=== PATIENT | female | born 1990 | race Caucasian/White ===

== ENCOUNTER 2016-08-22 00:15 | Emergency (ER) | payer SELFPAY ==
[~2016-08-22] VITALS: Ht 162.6 cm; Wt 91.6 kg
[2016-08-22 01:57] LABS: HEMATOCRIT 40.2 % (36.0-46.0); MCH 28.4 PG (29.0-34.0); MCHC 33.1 G/DL (30.0-36.0); MCV 85.7 FL (83-99); MEAN PLAT.VOLUME 11.3 uM^3 (9.5-12.4); PLATELET COUNT 244 K/uL (156-360); RBC DIS.WIDTH-CV 12.6 % (11.8-14.6); RBC DIS.WIDTH-SD 39.2 % (39-53); RED BLOOD COUNT 4.69 M/uL (3.80-5.20); WHITE BLOOD COUNT 10.8 K/uL (4.1-10.2)
[2016-08-22 02:02] LABS: ADD MIUA? NO; BILIRUBIN NEGATIVE; BLOOD NEGATIVE; COLOR STRAW ((YELLOW)); GLUCOSE (STRIP) NEGATIVE; KETONES NEGATIVE; LEUKOCYTES NEGATIVE; NITRITE NEGATIVE; PROTEIN (STRIP) NEGATIVE; SPECIFIC GRAVITY 1.005 (1.000-1.030); UCUL ADDED? NO; UROBILINOGEN 0.2 MG/DL (0.2-1.0)
[2016-08-22 02:09] LABS: CHLORIDE 101 mEq/L (99-109); POTASSIUM 3.5 mEq/L (3.7-5.4); SODIUM 139 mEq/L (136-147)
[2016-08-22 02:11] LABS: GLUCOSE 84 mg/dL (70-99)
[2016-08-22 02:12] LABS: ANION GAP 10 MEQ/L (2-14)
[2016-08-22 02:13] LABS: TOTAL BILIRUBIN 0.3 mg/dL (0.0-1.0)
[2016-08-22 02:14] LABS: ALKALINE PHOSPHATASE 123 IU/L (3-129)
[2016-08-22 02:15] LABS: GFR ESTIMATE (CALCULATED) > 59 mL/min/
[2016-08-22 02:16] LABS: UREA NITROGEN (BUN) 9 mg/dL (9-23)
[2016-08-22 02:18] LABS: CREATINE KINASE 16 IU/L (1-294); LIPASE 20 U/L (1.0-51.0); TOTAL CK 16 IU/L (1-294)
[2016-08-22 02:24] LABS: QUANTITATIVE HCG < 4.0 MIU/ML
[2016-08-22 02:25] LABS: CK-MB < 0.4 ng/mL (0.0-4.9)
[2016-08-22] MEDS ORDERED: STADOL NASAL2.5 ML NS (04:14)
[2016-08-22 04:22] VITALS: BP 115/64
== END 2016-08-22 04:25 | disposition home or self-care (01) ==
LOC: EME 00:15
PROVIDERS: Emergency Medicine
DX: R51 Headache (principal); G35 Multiple sclerosis; R56.9 Unspecified convulsions; F17.200 Nicotine dependence, unspecified, uncomplicated
CPT/HCPCS: 70450; 80053; 80164; 81003; 82550; 82553; 83690; 84702; 85027; 99281; 99284; J0595; J1100; J1200; J1630; J1885; J2405; J3475; J7030

== ENCOUNTER 2016-08-25 19:15 | Observation (INO) | payer SELFPAY ==
[~2016-08-25] VITALS: Ht 162.6 cm; Wt 90.8 kg
[~2016-08-25 19:15] MED LIST: STADOL NASAL2.5 ML NS
[2016-08-25 21:04] LABS: CHLORIDE 105 mEq/L (99-109); POTASSIUM 3.7 mEq/L (3.7-5.4); SODIUM 141 mEq/L (136-147)
[2016-08-25 21:06] LABS: GLUCOSE 84 mg/dL (70-99)
[2016-08-25 21:07] LABS: ANION GAP 9 MEQ/L (2-14)
[2016-08-25 21:10] LABS: GFR ESTIMATE (CALCULATED) > 59 mL/min/
[2016-08-25 21:11] LABS: UREA NITROGEN (BUN) 10 mg/dL (9-23)
[2016-08-25] MEDS ORDERED: ADDERALL10 MG PO (22:38)
[2016-08-25] MEDS ORDERED: BETASERON0.3 MG SC (22:38)
[2016-08-25] MEDS ORDERED: KEPPRA500 MG PO (22:39)
[2016-08-25] MEDS ORDERED: REGLAN10 MG PO (22:39)
[2016-08-25] MEDS ORDERED: DEPAKOTE500 MG PO (22:39)
[2016-08-25] MEDS ORDERED: TORADOL10 MG PO (22:39)
[2016-08-25] MEDS ORDERED: FOLIC ACID0.8 MG PO (22:39)
[2016-08-25] MEDS ORDERED: VIMPAT200 MG PO (22:39)
[2016-08-25] MEDS ORDERED: KEPPRA1000 MG PO (22:40)
[2016-08-25] MEDS ORDERED: BENADRYL ALLERG25 MG PO (22:40)
[2016-08-26] VITALS (7 sets, daily range): BP systolic 98–144; BP diastolic 57–91
[2016-08-26 01:35] LABS: HDL CHOLESTEROL 35 MG/DL (Desirable>=50); LDL CHOLESTEROL 67 mg/dL (Desirable<100); NON-HDL CHOLESTEROL 91 mg/dL (Desirable<160); TOTAL CHOLESTEROL 126 mg/dL (Desirable<200); TRIGLYCERIDES 120 MG/DL (Normal: <150)
[2016-08-26 02:45] LABS: EOSINOPHIL (%) 0 % (0-5); HEMATOCRIT 41.6 % (36.0-46.0); IMMATURE GRANULOCYTE (%) 0.9 % (0.0-0.7); IMMATURE GRANULOCYTE COUNT 0.1 K/uL; INSTRUMENT ABS NEUTROPHIL CT 11.1 K/uL; LYMPHOCYTE COUNT 1.1 K/uL (1.0-2.8); MCH 28.5 PG (29.0-34.0); MCHC 32.7 G/DL (30.0-36.0); MEAN PLAT.VOLUME 11.5 uM^3 (9.5-12.4); MONOCYTE (%) 0.5 % (3-12); MONOCYTE COUNT 0.1 K/uL (0-0.8); NEUTROPHIL (%) 89.8 % (45-76); NEUTROPHIL COUNT 11.1 K/uL (1.8-6.4); PLATELET COUNT 310 K/uL (156-360); RBC DIS.WIDTH-CV 12.9 % (11.8-14.6); RBC DIS.WIDTH-SD 40.8 % (39-53); RED BLOOD COUNT 4.78 M/uL (3.80-5.20); WHITE BLOOD COUNT 12.3 K/uL (4.1-10.2)
[2016-08-26 06:31] LABS: HEMATOCRIT 41.1 % (36.0-46.0); MCH 28.5 PG (29.0-34.0); MCHC 32.4 G/DL (30.0-36.0); MCV 88.2 FL (83-99); MEAN PLAT.VOLUME 11.6 uM^3 (9.5-12.4); PLATELET COUNT 288 K/uL (156-360); RBC DIS.WIDTH-CV 12.7 % (11.8-14.6); RBC DIS.WIDTH-SD 40.8 % (39-53); RED BLOOD COUNT 4.66 M/uL (3.80-5.20); WHITE BLOOD COUNT 8.4 K/uL (4.1-10.2)
[2016-08-26 06:38] LABS: ALKALINE PHOSPHATASE 121 IU/L (3-129); ANION GAP 12 MEQ/L (2-14); CHLORIDE 107 MEQ/L (99-109); GFR ESTIMATE (CALCULATED) > 59 mL/min/; SAMPLE HEMOLYSIS CHECK 0; SAMPLE ICTERIC CHECK 0; SAMPLE LIPEMIA CHECK 0; SODIUM 138 MEQ/L (136-147); TOTAL BILIRUBIN 0.3 MG/DL (0.0-1.0); UREA NITROGEN (BUN) 12 mg/dL (9-23)
[2016-08-26 06:41] LABS: GLUCOSE 229 mg/dL (70-99); POTASSIUM 4.9 MEQ/L (3.7-5.4)
[2016-08-27 07:07] LABS: Estimated Average Glucose 108 mg/dL (70-123); HEMOGLOBIN A1c (GLYCOHEMOGLOB) 5.4 % HGB (Below 5.7)
[2016-08-27 11:04] VITALS: BP 138/75
[2016-08-27] MEDS ORDERED: TIZANIDINE HCL2 MG PO (12:58)
[2016-08-27] MEDS ORDERED: PERCOCET 5/31 TABLET PO (12:58)
== END 2016-08-27 15:18 | disposition home or self-care (01) ==
LOC: EME 19:15 → 5SOUTH 08-26 00:04 → EDOF 08-26 00:04 → 5SOUTH 08-26 00:04
PROVIDERS: Emergency Medicine; Internal Medicine
DX: G35 Multiple sclerosis (principal); F17.200 Nicotine dependence, unspecified, uncomplicated; Z88.2 Allergy status to sulfonamides; R53.1 Weakness; R11.2 Nausea with vomiting, unspecified; R51 Headache
CPT/HCPCS: 70450; 70551; 80048; 80053; 80061; 83036; 85025; 85027; 92523 GN; 93880; 95819; 99281; 99285; G0378; J1100; J1200; J1644; J1885; J2270; J2405; J2930; J3010; J3475; J7030; J7050; Q0177

== ENCOUNTER 2016-09-05 19:38 | Emergency (ER) | payer SELFPAY ==
[~2016-09-05] VITALS: Ht 162.6 cm; Wt 90.3 kg
[~2016-09-05 19:38] MED LIST changes: +ADDERALL10 MG PO; +BENADRYL ALLERG25 MG PO; +BETASERON0.3 MG SC; +DEPAKOTE500 MG PO; +FOLIC ACID0.8 MG PO; +KEPPRA1000 MG PO; +KEPPRA500 MG PO; +PERCOCET 5/31 TABLET PO; +REGLAN10 MG PO; +TIZANIDINE HCL2 MG PO; +TORADOL10 MG PO; +VIMPAT200 MG PO
[2016-09-05 20:44] LABS: ADD MIUA? YES; BILIRUBIN NEGATIVE; BLOOD NEGATIVE; COLOR YELLOW ((YELLOW)); GLUCOSE (STRIP) NEGATIVE; KETONES 5; LEUKOCYTES LARGE; NITRITE NEGATIVE; PROTEIN (STRIP) 30; SPECIFIC GRAVITY 1.016 (1.000-1.030); UROBILINOGEN 0.2 MG/DL (0.2-1.0)
[2016-09-05 21:07] LABS: CHLORIDE 107 mEq/L (99-109); HEMATOCRIT 43.4 % (36.0-46.0); MCH 28.9 PG (29.0-34.0); MCHC 33.9 G/DL (30.0-36.0); MCV 85.3 FL (83-99); MEAN PLAT.VOLUME 11.2 uM^3 (9.5-12.4); PLATELET COUNT 281 K/uL (156-360); POTASSIUM 4.3 mEq/L (3.7-5.4); RBC DIS.WIDTH-CV 13.2 % (11.8-14.6); RBC DIS.WIDTH-SD 39.8 % (39-53); RED BLOOD COUNT 5.09 M/uL (3.80-5.20); SODIUM 138 mEq/L (136-147); WHITE BLOOD COUNT 13.2 K/uL (4.1-10.2)
[2016-09-05 21:09] LABS: GLUCOSE 91 mg/dL (70-99)
[2016-09-05 21:10] LABS: ANION GAP 11 MEQ/L (2-14)
[2016-09-05 21:11] LABS: TOTAL BILIRUBIN 0.2 mg/dL (0.0-1.0)
[2016-09-05 21:13] LABS: ALKALINE PHOSPHATASE 115 IU/L (3-129); GFR ESTIMATE (CALCULATED) > 59 mL/min/
[2016-09-05 21:14] LABS: UREA NITROGEN (BUN) 12 mg/dL (9-23)
[2016-09-05 21:24] LABS: QUANTITATIVE HCG < 4.0 MIU/ML
[2016-09-05 21:33] LABS: EPITHELIAL CELLS 4+ /HPF; MUCUS TRACE /LPF; WHITE BLOOD CELLS TNTC /HPF (0-5)
[2016-09-05 21:34] LABS: BACTERIA RARE /HPF; UCUL ADDED? YES
[2016-09-05 21:36] LABS: RED BLOOD CELLS 0-5 /HPF (0-5)
[2016-09-05] MEDS ORDERED: MOTRIN800 MG PO (23:33)
[2016-09-05] MEDS ORDERED: KEFLEX500 MG PO (23:33)
[2016-09-05] MEDS ORDERED: KEPPRA1000 MG PO (23:42)
[2016-09-05 23:50] VITALS: BP 121/87
== END 2016-09-05 23:52 | disposition home or self-care (01) ==
LOC: EME 19:38
PROVIDERS: Nurse Practitioner Family
DX: N83.201 Unspecified ovarian cyst, right side (principal); N30.90 Cystitis, unspecified without hematuria; G40.909 Epilepsy, unspecified, not intractable, without status epilepticus; F17.200 Nicotine dependence, unspecified, uncomplicated; Z88.2 Allergy status to sulfonamides
CPT/HCPCS: 76856; 80053; 81003; 84702; 85027; 87086; 99281; 99284; J1885; J2270